=== PATIENT | male | born 2000 | race American Indian/Alaskan Native ===

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

== ENCOUNTER 2022-11-11 15:21 | Inpatient (IN) ==
[2022-11-11] MEDS ORDERED: SODIUM CHLORIDE 0.9% 1000ML 1,000 ML IV ONE (16:13)
[2022-11-11] MEDS ORDERED: LORazepam 2 MG/1 ML VIAL IV STA (16:13)
[2022-11-11] MEDS ORDERED: THIAMINE HCL 200 MG in SODIUM CHLORIDE 0.9% 50 ML IV STA (16:13)
--- NOTE | 2022-11-11 16:23 | Emergency Department Note ---
Impression & Plan Alcohol withdrawal, ETOH abuse, Alcohol related seizure ED Provider Note NAME: ZOIE ROSA AGE: 22 SEX: M : 2000 ARRIVES VIA: Ambulance INFORMANT: Patient, the patient's parents ED PROVIDER(S): Yazan Brown DO CHIEF COMPLAINT: Seizure HPI: The patient is a 22-year-old male who presented to the emergency department for an evaluation of seizure. The patient had a seizure prior to arrival. This was witnessed by his parents. The patient does have a history of alcohol use. He states he has had alcohol withdrawal in the past but never a seizure. He denies having any headache at this time. He denies having any back pain. He d enies having any chest pain or difficulty breathing. He states he last drank alcohol 2 to 3 days ago. He has been compliant with his outpatient medications otherwise. He denies having any fever. ROS: See above HPI for pertinent positives & negatives. A total of 10 systems reviewed and were otherwise negative. PAST MEDICAL HISTORY: See Below PAST SURGICAL HISTORY: See Below FAMILY HISTORY: See Below SOCIAL HISTORY: See Below HOME MEDICATIONS: See Below ALLERGIES: See Below VITALS: See Below PHYSICAL EXAMINATION: GENERAL: The patient is awake and alert. He is somewhat anxious appearing. He is tremulous. EYES: The conjunctivae are clear. The pupils are round and reactive. EARS, NOSE, MOUTH AND THROAT: The nose is without any evidence of any deformity. NECK: The neck is nontender and supple. RESPIRATORY: Normal respiratory effort is noted there is no evidence of wheezing rhonchi or rales CARDIOVASCULAR: Tachycardic and regular heart sounds were noted to auscultation. There is no definite murmur. GASTROINTESTINAL: The abdomen is soft. Abdomen is nontender. MUSCULOSKELETAL/EXTREMITIES: There is no evidence of gross deformity full range of motion is noted in the hips and shoulders. SKIN: There is no obvious evidence of any rash. There are no petechiae, pallor or cyanosis noted. NEUROLOGIC: Patient is awake alert and oriented x3 strength is symmetric patellar reflexes are 2+ bilaterally MEDICAL DECISION MAKING: The patient is a 22-year-old male who presented to the emergency department for an evaluation of seizure. The patient had a seizure while at home. The patient does admit to longstanding alcohol use. The patient states he has not drank in approximately 2 to 3 days. The patient had a very high alcohol withdrawal score. This continued to increase despite treatment with benzodiazepines. The patient was treated with IV fluids as well as thiamine. He was reevaluated multiple times. Given his escalation of his withdrawal symptoms I discussed his condition with the on-call [facility]ist. I do feel the patient could benefit from inpatient treatment. I discussed his condition with his parents as well. Triage Nursing notes reviewed. Vital Signs: reviewed and remarkable for hypertension and tachycardia. Differential diagnosis: Epilepsy, infection, hypoglycemia, electrolyte abnormalities, cardiac sources, intracerebral event, trauma, toxicologic, neurologic, syncope, as well as other pathologies. ER treatment provided: See below Diagnostics interpreted by me: ECG: EKG was obtained in the emergency department. My interpretation is sinus tachycardia at 113 bpm. There is no ectopy. There is no acute ST segment abnormalities noted. No previous tracing was available. Cardiac Monitoring: An order was placed for continuous cardiac monitoring. The monitor shows a rate of 100 bpm with sinus tachycardia. Laboratory studies: As stated above and show below. Imaging studies: See below. Radiographic imaging was reviewed by myself Consultation(s): Dr. Miller was notified about the patient. She was on for the [facility] hospitalist group. She will evaluate the patient in the emergency department. Past Med/Surg History Medical History Hepatic steatosis Surgical History S/P wisdom tooth extraction Family History Father Heart disease Hypertension Diabetes Grandfather Prostate cancer Denies family history of Ovarian cancer Myocardial infarction Breast cancer Colorectal cancer Social History Smoking Status: Never smoker Second Hand Exposure: No; Do You Dip or Chew Tobacco: No; Hx Alcohol Use: Yes Alcohol type: hard liquor Alcohol Intake Frequency: 2-3 x/Week Hx Substance Use: No Preferred Language: Swazi Communication Ability: Effective Visual Impairment: No Limitations Hearing Ability: Normal Cell Installer Required: No marital status: Single Current Living Situation: Parent Current Living Situation Comment: living with parents current occupational status: unemployed Feels Safe at Home: Yes Childhood Exposure to Second-Hand Smoke: No Diet: regular Diet Comment: regular Dental Care, Regularly: Yes Physical Activity Frequency: Does not Exercise Seatbelt Use: always Sunscreen Use: No Assistive Devices: None Allergies Allergies Allergy/AdvReac Type Severity Reaction Status Date / Time No Known Allergies Allergy Verified 11/11/22 17:38 Home Meds Previous Rx's Medication Instructions Recorded dextroamphetamine-amphetamine ER 25 mg PO DAILY #90 caps 01/24/21 25 mg 24hr capsule,extend release (Adderall XR) dextroamphetamine-amphetamine ER 5 5 mg PO QAM #90 caps 01/24/21 mg 24hr capsule,extend release (Adderall XR) sertraline 100 mg tablet 100 mg PO DAILY #30 tabs 10/17/22 Results & Data (ED) Vital Signs Vital Signs - 24 hr 11/11/22 15:31 11/11/22 15:43 11/11/22 18:16 Temperature 36.6 C Temperature Source Oral Pulse Rate 119 H 123 H Pulse Rate [Radial] 100 H Pulse Rate from SpO2 Sensor Pulse Rhythm [Radial] Regular Pulse Strength [Radial] Normal Respiratory Rate 17 23 Respiratory Effort / Characteristics Non-Labored Spontaneous Non-Labored Spontaneous Respiratory Depth Normal Normal Respiratory Pattern Regular Regular Blood Pressure 172/96 H Blood Pressure [Left Arm] 163/105 H Blood Pressure Mean 121 Blood Pressure Mean [Left Arm] 124 Blood Pressure Position [Left Arm] Lying Pulse Oximetry 96 94 Oxygen Delivery Method Room Air Room Air Sepsis Recent Fever Within 48 Hours No Sepsis New/Unexplained Change in Mental Status N/A Sepsis Action Taken by Nursing No Action Required 11/11/22 15:30 11/11/22 15:30 11/11/22 16:00 Temperature Temperature Source Pulse Rate 113 H Pulse Rate [Radial] Pulse Rate from SpO2 Sensor 115 H Pulse Rhythm [Radial] Pulse Strength [Radial] Respiratory Rate 24 Respiratory Effort / Characteristics Respiratory Depth Respiratory Pattern Blood Pressure 172/96 H 148/110 H Blood Pressure [Left Arm] Blood Pressure Mean 121 122 Blood Pressure Mean [Left Arm] Blood Pressure Position [Left Arm] Pulse Oximetry 96 Oxygen Delivery Method Sepsis Recent Fever Within 48 Hours Sepsis New/Unexplained Change in Mental Status Sepsis Action Taken by Nursing 11/11/22 16:00 11/11/22 16:39 11/11/22 16:49 Temperature Temperature Source Pulse Rate 124 H 121 H 123 H Pulse Rate [Radial] Pulse Rate from SpO2 Sensor 124 H 123 H Pulse Rhythm [Radial] Pulse Strength [Radial] Respiratory Rate 29 H 18 24 Respiratory Effort / Characteristics Respiratory Depth Respiratory Pattern Blood Pressure Blood Pressure [Left Arm] Blood Pressure Mean Blood Pressure Mean [Left Arm] Blood Pressure Position [Left Arm] Pulse Oximetry 96 96 Oxygen Delivery Method Sepsis Recent Fever Within 48 Hours Sepsis New/Unexplained Change in Mental Status Sepsis Action Taken by Nursing 11/11/22 16:49 11/11/22 17:00 11/11/22 17:00 Temperature Temperature Source Pulse Rate 116 H Pulse Rate [Radial] Pulse Rate from SpO2 Sensor Pulse Rhythm [Radial] Pulse Strength [Radial] Respiratory Rate 22 Respiratory Effort / Characteristics Respiratory Depth Respiratory Pattern Blood Pressure 196/117 H 180/124 H Blood Pressure [Left Arm] Blood Pressure Mean 143 142 Blood Pressure Mean [Left Arm] Blood Pressure Position [Left Arm] Pulse Oximetry Oxygen Delivery Method Sepsis Recent Fever Within 48 Hours Sepsis New/Unexplained Change in Mental Status Sepsis Action Taken by Nursing 11/11/22 17:30 11/11/22 17:31 11/11/22 17:31 Temperature Temperature Source Pulse Rate 105 H 100 H Pulse Rate [Radial] Pulse Rate from SpO2 Sensor 107 H 102 H Pulse Rhythm [Radial] Pulse Strength [Radial] Respiratory Rate 23 17 Respiratory Effort / Characteristics Respiratory Depth Respiratory Pattern Blood Pressure 154/96 H Blood Pressure [Left Arm] Blood Pressure Mean 115 Blood Pressure Mean [Left Arm] Blood Pressure Position [Left Arm] Pulse Oximetry 97 98 Oxygen Delivery Method Sepsis Recent Fever Within 48 Hours Sepsis New/Unexplained Change in Mental Status Sepsis Action Taken by Nursing 11/11/22 18:00 Temperature Temperature Source Pulse Rate 89 Pulse Rate [Radial] Pulse Rate from SpO2 Sensor 90 Pulse Rhythm [Radial] Pulse Strength [Radial] Respiratory Rate 22 Respiratory Effort / Characteristics Respiratory Depth Respiratory Pattern Blood Pressure Blood Pressure [Left Arm] Blood Pressure Mean Blood Pressure Mean [Left Arm] Blood Pressure Position [Left Arm] Pulse Oximetry 96 Oxygen Delivery Method Sepsis Recent Fever Within 48 Hours Sepsis New/Unexplained Change in Mental Status Sepsis Action Taken by Usp Medications Current Medication List: was personally reviewed by me Laboratory Data Attestation: I reviewed the patient's lab results. 11/11/22 15:41 11/11/22 15:41 Lab Results 11/11/22 11/11/22 11/11/22 Range/Units 15:41 15:41 15:41 WBC 12.14 H (4.8-10.8) K/ul RBC 3.85 L (4.70-6.10) M/uL Hgb 12.7 L (14.0-18.0) g/dl Hct 36.7 L (42.0-52.0) % MCV 95.3 (80.0-100.0) fL MCH 33.0 (25.0-34.0) pg MCHC 34.6 (32.0-36.0) g/dL RDW Std Deviation 49.6 H (36.4-46.3) fL RDW Coeff of Teresa 14.3 (11.5-14.5) % Plt Count 452 H (130-400) K/uL MPV 10.7 (9.4-12.4) fL Immature Gran % (Auto) 1.1 % Neut % (Auto) 77.9 % Lymph % (Auto) 14.0 % [place] % (Auto) 5.2 % Eos % (Auto) 0.8 % Baso % (Auto) 1.0 % Neut # (Auto) 9.46 H (1.40-6.50) K/uL Lymph # (Auto) 1.70 (1.2-3.4) K/uL [place] # (Auto) 0.63 H (0.11-0.59) K/uL Eos # (Auto) 0.10 (0-0.50) K/uL Baso # (Auto) 0.12 (0-0.2) K/uL Immature Gran # (Auto) 0.13 (0.01-0.20) K/uL Sodium 142 (136-145) mmol/L Potassium 3.9 (3.5-5.1) mmol/L Chloride 110 H (98-107) mmol/L Carbon Dioxide 21 (21-32) mmol/L Anion Gap 11 (3-11) BUN 15 (6-23) mg/dl Creatinine 0.86 (0.6-1.4) mg/dl Est Cr Clr Drug Dosing 148.1 ml/min Est GFR ( Amer) 141.7 ml/min Est GFR (Non-Af Amer) 122.2 ml/min BUN/Creatinine Ratio 17.4 (10-20) Glucose 131 H (70-99(Fasting)) mg/dl Calcium 9.0 (8.6-10.3) mg/dl Total Bilirubin 0.3 (0.2-1.0) mg/dl AST 114 H (13-39) U/L ALT 133 H (7-52) U/L Alkaline Phosphatase 86 (34-104) U/L Total Creatine Kinase 87 (30-223) U/L Troponin I High Sens 3.2 (0-20) pg/ml Total Protein 7.1 (6.0-8.3) gm/dl Albumin 4.3 (3.4-5.0) gm/dl Globulin 2.8 (2.5-4.0) gm/dl Albumin/Globulin Ratio 1.5 (0.9-2) Ethyl Alcohol mg/dL < 10.0 (<10.0) mg/dl 11/11/22 Range/Units 16:14 WBC (4.8-10.8) K/ul RBC (4.70-6.10) M/uL Hgb (14.0-18.0) g/dl Hct (42.0-52.0) % MCV (80.0-100.0) fL MCH (25.0-34.0) pg MCHC (32.0-36.0) g/dL RDW Std Deviation (36.4-46.3) fL RDW Coeff of Teresa (11.5-14.5) % Plt Count (130-400) K/uL MPV (9.4-12.4) fL Immature Gran % (Auto) % Neut % (Auto) % Lymph % (Auto) % [place] % (Auto) % Eos % (Auto) % Baso % (Auto) % Neut # (Auto) (1.40-6.50) K/uL Lymph # (Auto) (1.2-3.4) K/uL [place] # (Auto) (0.11-0.59) K/uL Eos # (Auto) (0-0.50) K/uL Baso # (Auto) (0-0.2) K/uL Immature Gran # (Auto) (0.01-0.20) K/uL Sodium (136-145) mmol/L Potassium (3.5-5.1) mmol/L Chloride (98-107) mmol/L Carbon Dioxide (21-32) mmol/L Anion Gap (3-11) BUN (6-23) mg/dl Creatinine (0.6-1.4) mg/dl Est Cr Clr Drug Dosing ml/min Est GFR ( Amer) ml/min Est GFR (Non-Af Amer) ml/min BUN/Creatinine Ratio (10-20) Glucose (70-99(Fasting)) mg/dl Calcium (8.6-10.3) mg/dl Total Bilirubin (0.2-1.0) mg/dl AST (13-39) U/L ALT (7-52) U/L Alkaline Phosphatase (34-104) U/L Total Creatine Kinase Cancelled (30-223) U/L Troponin I High Sens Cancelled (0-20) pg/ml Total Protein (6.0-8.3) gm/dl Albumin (3.4-5.0) gm/dl Globulin (2.5-4.0) gm/dl Albumin/Globulin Ratio (0.9-2) Ethyl Alcohol mg/dL (<10.0) mg/dl Administered Medications Discontinued Medications Sodium Chloride (Nss 1000ml) 1,000 mls @ 999 mls/hr IV .[id number] ONE Stop: 11/11/22 17:13 Last Infusion: 11/11/22 18:15 Dose: 0 mls/hr Documented By: Admin: 11/11/22 16:47 Dose: 999 mls/hr Documented By: MELIZA Thiamine HCl 200 mg/ Sodium (Chloride) 52 mls @ 210 mls/hr IV NOW STA Stop: 11/11/22 16:27 Last Infusion: 11/11/22 16:57 Dose: 0 mls/hr Documented By: Admin: 11/11/22 16:42 Dose: 210 mls/hr Documented By: MELIZA Lorazepam (Lorazepam 2 Mg/1 Ml Vial) 1 mg IV NOW STA Stop: 11/11/22 16:14 Last Admin: 11/11/22 16:42 Dose: 1 mg Documented By: MELIZA Imaging Data Attestation: I personally reviewed and interpreted this imaging study as follows: My Impression: CT of the brain was obtained in the emergency department. My interpretation is no intracranial hemorrhage, no mass effect, final report below. Radiologist's Impression: Cervical Spine CT 11/11/22 16:[address] DOSE: 487.91 mGycm HISTORY: Seizures. Neck pain. TECHNIQUE: Multiaxial CT images of the cervical spine were performed and reformatted in the sagittal and coronal plane without the use of contrast. A dose lowering technique was utilized adhering to the principles of ALARA. COMPARISON: None. FINDINGS: No fractures. No subluxation. Prevertebral soft tissues and the C1-C2 interval are intact. No pneumothorax. IMPRESSION: No fractures within the cervical spine. ACT 112: Negative or not required by law. Electronically signed by: Bruno Joy M.D. 11/11/2022 4:[address] 11/11/22 16:[address] DOSE: 638.56 mGycm HISTORY: Seizures. TECHNIQUE: Multiaxial CT images of the head were performed without the use of intravenous contrast. Automated exposure control was utilized for this study. A dose lowering technique was utilized adhering to the principles of ALARA. Comparison: None. Findings: The paranasal sinuses and mastoid air cells are clear. The calvarium and skull base are intact. The ventricles and sulci are within normal limits. There is no mass, hematoma, midline shift, or acute infarct. Impression: No acute intracranial abnormality. ACT 112: Negative or not required by law. Electronically signed by: Bruno Joy M.D. 11/11/2022 4:44 PM Discharge Plan Visit Data Chief Complaint: Seizure ED Provider: Yazan Brown Discharge Problem: Alcohol withdrawal, ETOH abuse, Alcohol related seizure Patient Disposition: Being Evaluated by Hospitalist Forms Stand Alone Forms: [facility] Prescriptions Prescriptions: No Action dextroamphetamine-amphetamine [Adderall XR] 25 mg capsule,extended release 24hr 25 mg PO DAILY Qty: 90 0RF Rx Instructions: TOTAL DOSE 30 MG--TAKES WITH 5 MG CAP. dextroamphetamine-amphetamine [Adderall XR] 5 mg capsule,extended release 24hr 5 mg PO QAM Qty: 90 0RF Rx Instructions: TOTAL DOSE 30 MG--TAKES WITH 25 MG CAP. sertraline 100 mg tablet 100 mg PO DAILY Qty: 30 2RF Referrals Referrals: Marilu Segundo MD [Primary Care Provider] -
[2022-11-11 16:46] LABS: Basophils # (auto) 0.12 K/uL (0-0.2); Eosinophils % (auto) 0.8 %; Hematocrit (blood only) 36.7 % (42.0-52.0); Hemoglobin 12.7 g/dl (14.0-18.0); Immature Granulocytes # (auto) 0.13 K/uL (0.01-0.20); Immature Granulocytes % (auto) 1.1 %; Mean Corpuscular Hgb Conc 34.6 g/dL (32.0-36.0); Mean Corpuscular Volume 95.3 fL (80.0-100.0); Mean Platelet Volume 10.7 fL (9.4-12.4); Monocytes # (auto) 0.63 K/uL (0.11-0.59); Monocytes % (auto) 5.2 %; Neutrophils # (auto) 9.46 K/uL (1.40-6.50); Neutrophils % (auto) 77.9 %; Platelet Count 452 K/uL (130-400); RDW Coefficient of Variation 14.3 % (11.5-14.5); RDW Standard Deviation 49.6 fL (36.4-46.3); Red Blood Count 3.85 M/uL (4.70-6.10); White Blood Count 12.14 K/ul (4.8-10.8)
--- NOTE | 2022-11-11 16:46 | CT Scan Report ---
HEAD CT NONCONTRAST CT DOSE: 638.56 mGycm HISTORY: Seizures. TECHNIQUE: Multiaxial CT images of the head were performed without the use of intravenous contrast. A utomated exposure control was utilized for this study. A dose lowering technique was utilized adheri ng to the principles of ALARA. Comparison: None. Findings: The paranasal sinuses and mastoid air cells are clear. The calvarium and skull base are int act. The ventricles and sulci are within normal limits. There is no mass, hematoma, midline shift, or acute infarct. Impression: No acute intracranial abnormality. ACT 112: Negative or not required by law. Electronically signed by: Bruno Joy M.D. 11/11/2022 4:44 PM
--- NOTE | 2022-11-11 16:52 | CT Scan Report ---
CERVICAL SPINE CT CT DOSE: 487.91 mGycm HISTORY: Seizures. Neck pain. TECHNIQUE: Multiaxial CT images of the cervical spine were performed and reformatted in the sagittal and coronal plane without the use of contrast. A dose lowering technique was utilized adhering to th e principles of ALARA. COMPARISON: None. FINDINGS: No fractures. No subluxation. Prevertebral soft tissues and the C1-C2 interval are intact. No pneumothorax. IMPRESSION: No fractures within the cervical spine. ACT 112: Negative or not required by law. Electronically signed by: Bruno Joy M.D. 11/11/2022 4:50 PM
[2022-11-11 16:54] LABS: Albumin Level 4.3 gm/dl (3.4-5.0); Bilirubin,Total 0.3 mg/dl (0.2-1.0); Potassium 3.9 mmol/L (3.5-5.1)
[2022-11-11 17:00] LABS: Albumin Globulin Ratio 1.5 (0.9-2); BUN Creatinine Ratio 17.4 (10-20); Creatinine Clr Calc Pharmacy 148.1 ml/min; Est GFR (African American) 141.7 ml/min; Est GFR (Non-African American) 122.2 ml/min; Globulin 2.8 gm/dl (2.5-4.0); Total Protein 7.1 gm/dl (6.0-8.3)
[2022-11-11 17:05] LABS: Troponin I High Sensitivity 3.2 pg/ml (0-20)
[2022-11-11] MEDS ORDERED: Ativan IV Alcohol Withdrawal--Active Protocol IV PRN (17:16)
[2022-11-11] MEDS ORDERED: LORazepam 2 MG/1 ML VIAL IV PRN ×3 (17:16)
--- NOTE | 2022-11-11 20:33 | History & Physical Report ---
Date of Service November 11, 2022 Assessment & Plan (1) Alcohol related seizure: Plan: 22 M with no significant past medical history or prior seizure history brought to the hospital after largely unwitnessed seizure after nearly 48 hours since last drink. Admitted for supervision of suspected alcohol withdrawal seizure. Alcohol-related seizure -No prior history of seizure. Long (5+ years) history of heavy alcohol consumption. Last drink on Friday night (~48 hours). -No intracranial, cervical spinal injury or acute process on imaging. -Negative serum ethyl alcohol, though this could be indicative of faster metabolism of alcohol. -Slight transaminitis seen on initial labs. -S/p IV thiamine 200 mg, IV lorazepam in the ED. * Admit to PCU telemetry. * XR left shoulder, XR left hip results pending. * IVF D5 LR@125 mL/h * Initiate KIKO protocol: p.o. lorazepam ordered to be given per protocol. * IV thiamine 100 mg daily; p.o. folate 1 mg daily * Trend vitals, CMP, CBC. * MRI, EEG if repeat seizure occurs Anxiety -Takes sertraline 100 mg daily at home * Continue home regimen ADHD * Held home Adderall on admission. Code: Full code Dispo: PCU FEN/GI: D5 LR @maintenance rate DVT Prophylaxis: None PT/OT: No Consults: None Case Management: No (2) Alcohol withdrawal: (3) Anxiety: (4) ADHD: History of Present Illness Primary Care Provider: Marilu Segundo MD Quan is a 22-year-old male with no significant past medical history who presented today to the ED after an unwitnessed seizure. Per the patient's mom, who is at bedside, sister was present after seizure started. She described, according to mom, generalized shaking, eyes rolling in the back of his head, and unresponsiveness. Patient also had some postictal confusion. He denies ever having a prior seizure. He does, however, report consuming approximately 5 shots of hard liquor a day at minimum since the age of 16. Patient's last drink was nearly 2 days ago. He denies drug use (marijuana, cocaine, meth, heroin), and further denies taking any new vitamins or supplements. In the ED, labs were notable for slight leukocytosis of 12.14. AST 114, ALT 133. Alk phos was normal at 86. Toxicology screen was negative for ethyl alcohol. Head CT, and cervical spine CT were both negative for acute fracture or dislocation/subluxation. He received a dose of IV thiamine 200 mg in the ED, and 1 dose of IV lorazepam. Hospitalist was then consulted for admission. On admission, he reports some mild epigastric pain. Otherwise, he denies headache, dizziness, vision changes, shortness of breath, chest pain, palpitations, diaphoresis, abdominal pain, nausea, or vomiting. He is concerned about having to stay here for an extended period of time due to his pending assignments at school. Allergies Allergy/AdvReac Type Severity Reaction Status Date / Time No Known Allergies Allergy Verified 11/11/22 17:38 Home Medications Medication Instructions Recorded Confirmed Type dextroamphetamine-amphetamine ER 25 mg PO DAILY #90 caps 01/24/21 11/11/22 Rx 25 mg 24hr capsule,extend release (Adderall XR) dextroamphetamine-amphetamine ER 5 5 mg PO QAM #90 caps 01/24/21 11/11/22 Rx mg 24hr capsule,extend release (Adderall XR) sertraline 100 mg tablet 100 mg PO DAILY #30 tabs 10/17/22 11/11/22 Rx Past Med/Surg History Medical History Hepatic steatosis Surgical History S/P wisdom tooth extraction Family History Father Heart disease Hypertension Diabetes Grandfather Prostate cancer Denies family history of Ovarian cancer Myocardial infarction Breast cancer Colorectal cancer Social History Smoking Status: Never smoker Second Hand Exposure: No; Do You Dip or Chew Tobacco: No; Hx Alcohol Use: Yes Alcohol type: hard liquor Alcohol Intake Frequency: 2-3 x/Week Hx Substance Use: No Preferred Language: [place]se Communication Ability: Effective Visual Impairment: No Limitations Hearing Ability: Normal Book Editor Required: No marital status: Single Current Living Situation: Parent Current Living Situation Comment: living with parents current occupational status: unemployed Feels Safe at Home: Yes Childhood Exposure to Second-Hand Smoke: No Diet: regular Diet Comment: regular Dental Care, Regularly: Yes Physical Activity Frequency: Does not Exercise Seatbelt Use: always Sunscreen Use: No Assistive Devices: None Review of Systems Review of Systems: All systems reviewed & are unremarkable except as noted in HPI & below Physical Exam Physical Exam: General: No acute distress HEENT: PERRLA. Normal conjunctiva, anicteric sclera. Oropharynx normal. Respiratory: Normal respiratory effort, CTABL. Cardiovascular: RRR without murmurs, gallops, or rubs. No edema. Distal capillary refill <2 seconds. GI: Soft abdomen with normal bowel sounds heard on auscultation. Nontender x4 quadrants MSK: Point tenderness to palpation of left shoulder at the joint space and along clavicle; point tenderness at proximal anterior left hip. Neuro: Alert and oriented x3. CN II-XII intact bilaterally. No sensory deficits elicited on exam. Results & Data Results & Data Vital Signs (Past 12 Hours) Vital Signs Temp Pulse Pulse Resp BP BP Pulse Ox 11/11/22 19:15 96 H 11/11/22 20:08 96 H 18 157/116 H 98 11/11/22 18:00 89 22 96 11/11/22 17:31 100 H 17 98 11/11/22 17:31 154/96 H 11/11/22 17:30 105 H 23 97 11/11/22 17:00 116 H 22 11/11/22 17:00 180/124 H 11/11/22 16:49 196/117 H 11/11/22 16:49 123 H 24 96 11/11/22 16:39 121 H 18 11/11/22 16:00 124 H 29 H 96 11/11/22 16:00 148/110 H 11/11/22 15:30 113 H 24 96 11/11/22 15:30 172/96 H 11/11/22 18:16 100 H 23 163/105 H 94 11/11/22 15:43 36.6 C 123 H 17 172/96 H 96 11/11/22 15:31 119 H O2 Del Method 11/11/22 19:15 11/11/22 20:08 Room Air 11/11/22 18:00 11/11/22 17:31 11/11/22 17:31 11/11/22 17:30 11/11/22 17:00 11/11/22 17:00 11/11/22 16:49 11/11/22 16:49 11/11/22 16:39 11/11/22 16:00 11/11/22 16:00 11/11/22 15:30 11/11/22 15:30 11/11/22 18:16 Room Air 11/11/22 15:43 Room Air 11/11/22 15:31 Laboratory Results Laboratory Results WBC 12.14 K/ul (4.8-10.8) H 11/11/22 15:41 RBC 3.85 M/uL (4.70-6.10) L 11/11/22 15:41 Hgb 12.7 g/dl (14.0-18.0) L 11/11/22 15:41 Hct 36.7 % (42.0-52.0) L 11/11/22 15:41 MCV 95.3 fL (80.0-100.0) 11/11/22 15:41 MCH 33.0 pg (25.0-34.0) 11/11/22 15:41 MCHC 34.6 g/dL (32.0-36.0) 11/11/22 15:41 RDW Std Deviation 49.6 fL (36.4-46.3) H 11/11/22 15:41 RDW Coeff of Teresa 14.3 % (11.5-14.5) 11/11/22 15:41 Plt Count 452 K/uL (130-400) H 11/11/22 15:41 MPV 10.7 fL (9.4-12.4) 11/11/22 15:41 Immature Gran % (Auto) 1.1 % 11/11/22 15:41 Neut % (Auto) 77.9 % 11/11/22 15:41 Lymph % (Auto) 14.0 % 11/11/22 15:41 [place] % (Auto) 5.2 % 11/11/22 15:41 Eos % (Auto) 0.8 % 11/11/22 15:41 Baso % (Auto) 1.0 % 11/11/22 15:41 Neut # (Auto) 9.46 K/uL (1.40-6.50) H 11/11/22 15:41 Lymph # (Auto) 1.70 K/uL (1.2-3.4) 11/11/22 15:41 [place] # (Auto) 0.63 K/uL (0.11-0.59) H 11/11/22 15:41 Eos # (Auto) 0.10 K/uL (0-0.50) 11/11/22 15:41 Baso # (Auto) 0.12 K/uL (0-0.2) 11/11/22 15:41 Immature Gran # (Auto) 0.13 K/uL (0.01-0.20) 11/11/22 15:41 Sodium 142 mmol/L (136-145) 11/11/22 15:41 Potassium 3.9 mmol/L (3.5-5.1) 11/11/22 15:41 Chloride 110 mmol/L (98-107) H 11/11/22 15:41 Carbon Dioxide 21 mmol/L (21-32) 11/11/22 15:41 Anion Gap 11 (3-11) 11/11/22 15:41 BUN 15 mg/dl (6-23) 11/11/22 15:41 Creatinine 0.86 mg/dl (0.6-1.4) 11/11/22 15:41 Est Cr Clr Drug Dosing 148.1 ml/min 11/11/22 15:41 Est GFR ( Amer) 141.7 ml/min 11/11/22 15:41 Est GFR (Non-Af Amer) 122.2 ml/min 11/11/22 15:41 BUN/Creatinine Ratio 17.4 (10-20) 11/11/22 15:41 Glucose 131 mg/dl (70-99(Fasting)) H 11/11/22 15:41 Calcium 9.0 mg/dl (8.6-10.3) 11/11/22 15:41 Total Bilirubin 0.3 mg/dl (0.2-1.0) 11/11/22 15:41 AST 114 U/L (13-39) H 11/11/22 15:41 ALT 133 U/L (7-52) H 11/11/22 15:41 Alkaline Phosphatase 86 U/L (34-104) 11/11/22 15:41 Total Creatine Kinase Cancelled 11/11/22 16:14 Troponin I High Sens Cancelled 11/11/22 16:14 Total Protein 7.1 gm/dl (6.0-8.3) 11/11/22 15:41 Albumin 4.3 gm/dl (3.4-5.0) 11/11/22 15:41 Globulin 2.8 gm/dl (2.5-4.0) 11/11/22 15:41 Albumin/Globulin Ratio 1.5 (0.9-2) 11/11/22 15:41 Ethyl Alcohol mg/dL < 10.0 mg/dl (<10.0) 11/11/22 15:41 SARS-CoV-2, RNA, NAAT NEGATIVE (NEGATIVE) 11/11/22 19:[address] 11/11/22 16:[address] DOSE: 487.91 mGycm HISTORY: Seizures. Neck pain. TECHNIQUE: Multiaxial CT images of the cervical spine were performed and reformatted in the sagittal and coronal plane without the use of contrast. A dose lowering technique was utilized adhering to the principles of ALARA. COMPARISON: None. FINDINGS: No fractures. No subluxation. Prevertebral soft tissues and the C1-C2 interval are intact. No pneumothorax. IMPRESSION: No fractures within the cervical spine. ACT 112: Negative or not required by law. Electronically signed by: Bruno Joy M.D. 11/11/2022 4:[address] 11/11/22 16:[address] DOSE: 638.56 mGycm HISTORY: Seizures. TECHNIQUE: Multiaxial CT images of the head were performed without the use of intravenous contrast. Automated exposure control was utilized for this study. A dose lowering technique was utilized adhering to the principles of ALARA. Comparison: None. Findings: The paranasal sinuses and mastoid air cells are clear. The calvarium and skull base are intact. The ventricles and sulci are within normal limits. There is no mass, hematoma, midline shift, or acute infarct. Impression: No acute intracranial abnormality. ACT 112: Negative or not required by law. Electronically signed by: Bruno Joy M.D. 11/11/2022 4:44 PM Supervising Physician Co-Signing Physician Notes Patient seen and examined, chart reviewed, case discussed with Dr. Lindo and I agree with the assessment and plan as above. In brief, patient is a 22yo male with history of heavy EtOH use, ADHD and Depression presenting with seizure. Patient reports he was watching TV then had some alteration of the audio from the TV and his "brain felt fuzzy". He then proceeded to have a seizure. Was found by family. He reports drinking heavily in the past but now "tries to avoid alcohol". Difficult to quantify how much EtOH he has been drinking lately. Last drink 2- 3 days ago. He denies fever, head trauma, sleep deprivation, new medication or missing medications. On exam he is resting in bed. No tremors. Mother is at bedside as well Skin - warm, dry, intact, no rashes/lesions HEENT - NC/AT, PERRL, MMM, Neck supple Heart - +S1/S2, regular, no m/r/g Lungs - CTA Abd - soft, NT/ND Ext - warm, well perfused Neuro - no focal deficits, no tremors Labs and images reviewed. Significant for mildly elevated WBC=12.14, normochromic/normocytic anemia with Hgb=12.7, Hct=36.7, Qkg=875 YOA=704, ZDR=739 CTHead and C-spine unremarkable Assessment/Plan 22yo male presenting with seizure. He has history of frequent EtOH use with withdrawal symptoms - no prior seizure -Seizure precautions -AWSS -Will check UTox -Consider EEG, MRI and Neuro assessment if patient seizes again Resident Activity Tracking Resident Involvement: Resident Care Provided Care Provided: Adult Hospital Medicine (2) Alcohol withdrawal Complication of substance-induced condition: with unspecified complication Qualified Code(s): F10.939 - Alcohol use, unspecified with withdrawal, unspecified
[2022-11-11] MEDS ORDERED: LORazepam 1 MG TAB PO PRN ×3 (23:11)
[2022-11-11] MEDS ORDERED: Ativan PO Alcohol Withdrawal--Active Protocol PO PRN (23:11)
--- NOTE | 2022-11-11 23:20 | Billing Data ---
Date of Service November 11, 2022 Coding Level of Care Code 21955 INT INP/OBS CARE
[2022-11-11] MEDS: D5W AND LACTATED RINGERS 1,000 ML IV SCH (23:39)
[2022-11-12 06:25] LABS: Basophils # (auto) 0.09 K/uL (0-0.2); Basophils % (auto) 0.8 %; Eosinophils % (auto) 1.7 %; Hematocrit (blood only) 35.3 % (42.0-52.0); Hemoglobin 12.1 g/dl (14.0-18.0); Immature Granulocytes # (auto) 0.09 K/uL (0.01-0.20); Immature Granulocytes % (auto) 0.8 %; Lymphocytes # (auto) 1.79 K/uL (1.2-3.4); Lymphocytes % (auto) 15.4 %; Mean Corpuscular Hemoglobin 32.5 pg (25.0-34.0); Mean Corpuscular Hgb Conc 34.3 g/dL (32.0-36.0); Mean Corpuscular Volume 94.9 fL (80.0-100.0); Mean Platelet Volume 10.4 fL (9.4-12.4); Monocytes # (auto) 0.94 K/uL (0.11-0.59); Monocytes % (auto) 8.1 %; Neutrophils # (auto) 8.49 K/uL (1.40-6.50); Neutrophils % (auto) 73.2 %; Platelet Count 400 K/uL (130-400); RDW Standard Deviation 48.6 fL (36.4-46.3); Red Blood Count 3.72 M/uL (4.70-6.10)
[2022-11-12 06:33] LABS: Alanine Aminotransferase 108 U/L (7-52); Albumin Globulin Ratio 1.5 (0.9-2); Alkaline Phosphatase 71 U/L (34-104); Anion Gap 9 (3-11); Aspartate Aminotransferase 76 U/L (13-39); BUN Creatinine Ratio 11.8 (10-20); Bilirubin,Total 0.6 mg/dl (0.2-1.0); Blood Urea Nitrogen 8 mg/dl (6-23); Calcium 8.5 mg/dl (8.6-10.3); Carbon Dioxide 21 mmol/L (21-32); Chloride 110 mmol/L (98-107); Creatinine Clr Calc Pharmacy 187.3 ml/min; Est GFR (African American) > 150.0 ml/min; Est GFR (Non-African American) 134.6 ml/min; Globulin 2.6 gm/dl (2.5-4.0); Glucose 103 mg/dl (70-99(Fasting)); Magnesium 1.9 mg/dl (1.7-2.4); Phosphorus 3.5 mg/dl (2.5-4.9); Potassium 3.2 mmol/L (3.5-5.1); Sodium 140 mmol/L (136-145); Total Protein 6.6 gm/dl (6.0-8.3)
[2022-11-12] MEDS ORDERED: POTASSIUM CHLORIDE CRTAB 20 MEQ TABCR PO STA (06:34)
[2022-11-12] MEDS ORDERED: POTASSIUM CHLORIDE / WTR 10 MEQ/100 ML PLCT IV SCH (07:15)
--- NOTE | 2022-11-12 08:04 | XRay Report ---
XR hip LT 2V w pelvis CLINICAL HISTORY: Fall. Left hip pain. COMPARISON STUDY: None. FINDINGS: No fracture or dislocation within the pelvis or hips. The sacrum is intact. Soft tissues ar e unremarkable. No radiopaque foreign bodies. IMPRESSION: No fractures within the pelvis or hips. ACT 112: Negative or not required by law. Electronically signed by: Bruno Joy M.D. 11/12/2022 7:25 AM
--- NOTE | 2022-11-12 08:04 | XRay Report ---
LEFT SHOULDER 3 VIEWS HISTORY: Left shoulder pain. fall 2/2 seizure COMPARISON: None. FINDINGS: There is no fracture or dislocation. Soft tissues are unremarkable. No radiopaque foreign b odies. The left clavicle is intact. IMPRESSION: No fractures. ACT 112: Negative or not required by law. Electronically signed by: Bruno Joy M.D. 11/12/2022 7:26 AM
--- NOTE | 2022-11-12 08:07 | Medical Student H&P ---
Date of Service November 12, 2022 Assessment & Plan (1) Alcohol related seizure: Plan: 22 M with no significant past medical history or prior seizure history brought to the hospital after largely unwitnessed seizure after nearly 48 hours since last drink. Admitted for supervision of suspected alcohol withdrawal seizure. Alcohol-related seizure -No prior history of seizure. Long (5+ years) history of heavy alcohol consumption. Last drink on Friday night (~48 hours). -No intracranial, cervical spinal injury or acute process on imaging. -Negative serum ethyl alcohol, though this could be indicative of faster metabolism of alcohol. -Slight transaminitis seen on initial labs. -S/p IV thiamine 200 mg, IV lorazepam in the ED. * Admit to PCU telemetry. * XR left shoulder, XR left hip results pending. * IVF D5 LR@125 mL/h * Initiate KIKO protocol: p.o. lorazepam ordered to be given per protocol. * IV thiamine 100 mg daily; p.o. folate 1 mg daily * Trend vitals, CMP, CBC. * MRI, EEG if repeat seizure occurs Assessment/Plan 22yo male presenting with seizure. He has history of frequent EtOH use with withdrawal symptoms - no prior seizure -Seizure precautions -AWSS -Will check UTox -Consider EEG, MRI and Neuro assessment if patient seizes again Anxiety -Takes sertraline 100 mg daily at home * Continue home regimen ADHD * Held home Adderall on admission. Code: Full code Dispo: PCU FEN/GI: D5 LR @maintenance rate DVT Prophylaxis: None PT/OT: No Consults: None Case Management: No (2) Alcohol withdrawal: Complication of substance-induced condition: with unspecified complication Qualified Code(s): F10.939 - Alcohol use, unspecified with withdrawal, unspecified (3) Anxiety: (4) ADHD: Admission and Anticipated Discharge Date Admission Date: November 11, 2022 History of Present Illness Primary Care Provider: Marilu Segundo MD Quan is a 22 year old male with a PMHx significant for alcohol use disorder and ADHD who was admitted on 11/11/22 for a seizure after 48 hours of sustaining from alcohol. Per the patient's mom, who is at bedside, sister was present after seizure started. She described, according to mom, generalized shaking, eyes rolling in the back of his head, and unresponsiveness. Patient reports he was watching TV then had some alteration of the audio from the TV and his "brain felt fuzzy".Patient also had some postictal confusion. He denies ever having a prior seizure. He does, however, report consuming approximately 5 shots of hard liquor a day at minimum since the age of 16. Patient's last drink was nearly 2 days ago. He denies drug use (marijuana, cocaine, meth, heroin), and further denies taking any new vitamins or supplements. He denies fever, head trauma, sleep deprivation, new medication or missing medications. In the ED, labs were notable for slight leukocytosis of 12.14. AST 114, ALT 133. Alk phos was normal at 86. Toxicology screen was negative for ethyl alcohol. Head CT, and cervical spine CT were both negative for acute fracture or dislocation/subluxation. He received a dose of IV thiamine 200 mg in the ED, and 1 dose of IV lorazepam. On admission, he reports some mild epigastric pain. Otherwise, he denies headache, dizziness, vision changes, shortness of breath, chest pain, palpitations, diaphoresis, abdominal pain, nausea, or vomiting. He is concerned about having to stay here for an extended period of time due to his pending assignments at school. This morning, he is On exam he is resting in bed. No tremors. Mother is at bedside as well Labs and images reviewed. Significant for mildly elevated WBC=12.14, normochromic/normocytic anemia with Hgb=12.7, Hct=36.7, Owo=135 BPQ=048, PXS=949 CTHead and C-spine unremarkable Allergies Allergy/AdvReac Type Severity Reaction Status Date / Time No Known Allergies Allergy Verified 11/11/22 17:38 Home Medications Medication Instructions Recorded Confirmed Type dextroamphetamine-amphetamine ER 25 mg PO DAILY #90 caps 01/24/21 11/11/22 Rx 25 mg 24hr capsule,extend release (Adderall XR) dextroamphetamine-amphetamine ER 5 5 mg PO QAM #90 caps 01/24/21 11/11/22 Rx mg 24hr capsule,extend release (Adderall XR) sertraline 100 mg tablet 100 mg PO DAILY #30 tabs 10/17/22 11/11/22 Rx Past Med/Surg History Medical History Hepatic steatosis Surgical History S/P wisdom tooth extraction Family History Father Heart disease Hypertension Diabetes Grandfather Prostate cancer Denies family history of Ovarian cancer Myocardial infarction Breast cancer Colorectal cancer Social History Smoking Status: Unknown if ever smoked Second Hand Exposure: No; Do You Dip or Chew Tobacco: No; Hx Alcohol Use: Yes Alcohol type: hard liquor Alcohol Intake Frequency: 2-3 x/Week Hx Substance Use: No Preferred Language: Sami Communication Ability: Effective Visual Impairment: No Limitations Hearing Ability: Normal Locator Required: No Beliefs That Will Affect Care: None marital status: Single Current Living Situation: Family Current Living Situation Comment: living with parents current occupational status: unemployed Feels Safe at Home: Yes Childhood Exposure to Second-Hand Smoke: No Diet: regular Diet Comment: regular Dental Care, Regularly: Yes Physical Activity Frequency: Does not Exercise Seatbelt Use: always Sunscreen Use: No Assistive Devices: None Physical Exam Physical Exam: Constitutional: [well-appearing, no acute distress] HEENT: [NCAT, no conjunctival injection] CV: [regular rhythm, no murmur appreciated, extremitieswell-perfused, no LE edema] Resp: [CTABL, no wheezes/rales/rhonchi appreciated,no increased work of breathing] GI: [soft, nondistended, nontender, BS normoactive] MSK: [no gross deformities appreciated] Skin: [warm, dry, no rash appreciated] Neuro: [alert, oriented, no focal neurologic deficitappreciated Results & Data Vital Signs (Past 12 Hours) Vital Signs Temp Pulse Pulse Resp BP BP Pulse Ox 11/12/22 06:59 36.6 C 74 20 150/98 H 97 11/12/22 03:09 36.6 C 97 H 20 141/95 H 98 11/11/22 23:59 76 11/12/22 00:52 36.7 C 73 18 164/113 H 98 11/12/22 00:24 36.8 C 74 18 155/98 H 97 11/11/22 21:40 79 23 11/11/22 21:30 116 H 18 11/11/22 21:20 88 22 11/11/22 21:10 86 22 11/11/22 21:06 184/105 H 11/11/22 21:06 112 H 16 11/11/22 21:00 102 H 23 11/11/22 20:50 94 H 23 11/11/22 20:40 95 H 18 11/11/22 20:31 100 H 20 11/11/22 20:30 87 24 11/11/22 20:20 81 16 11/11/22 20:10 102 H 25 H 11/11/22 20:08 96 H 18 157/116 H 98 O2 Del Method 11/12/22 06:59 Room Air 11/12/22 03:09 Room Air 11/11/22 23:59 11/12/22 00:52 Room Air 11/12/22 00:24 Room Air 11/11/22 21:40 11/11/22 21:30 11/11/22 21:20 11/11/22 21:10 11/11/22 21:06 11/11/22 21:06 11/11/22 21:00 11/11/22 20:50 11/11/22 20:40 11/11/22 20:31 11/11/22 20:30 11/11/22 20:20 11/11/22 20:10 11/11/22 20:08 Room Air Laboratory Results Laboratory Results WBC 11.60 K/ul (4.8-10.8) H 11/12/22 05:32 RBC 3.72 M/uL (4.70-6.10) L 11/12/22 05:32 Hgb 12.1 g/dl (14.0-18.0) L 11/12/22 05:32 Hct 35.3 % (42.0-52.0) L 11/12/22 05:32 MCV 94.9 fL (80.0-100.0) 11/12/22 05:32 MCH 32.5 pg (25.0-34.0) 11/12/22 05:32 MCHC 34.3 g/dL (32.0-36.0) 11/12/22 05:32 RDW Std Deviation 48.6 fL (36.4-46.3) H 11/12/22 05:32 RDW Coeff of Teresa 14.0 % (11.5-14.5) 11/12/22 05:32 Plt Count 400 K/uL (130-400) 11/12/22 05:32 MPV 10.4 fL (9.4-12.4) 11/12/22 05:32 Immature Gran % (Auto) 0.8 % 11/12/22 05:32 Neut % (Auto) 73.2 % 11/12/22 05:32 Lymph % (Auto) 15.4 % 11/12/22 05:32 Major % (Auto) 8.1 % 11/12/22 05:32 Eos % (Auto) 1.7 % 11/12/22 05:32 Baso % (Auto) 0.8 % 11/12/22 05:32 Neut # (Auto) 8.49 K/uL (1.40-6.50) H 11/12/22 05:32 Lymph # (Auto) 1.79 K/uL (1.2-3.4) 11/12/22 05:32 Major # (Auto) 0.94 K/uL (0.11-0.59) H 11/12/22 05:32 Eos # (Auto) 0.20 K/uL (0-0.50) 11/12/22 05:32 Baso # (Auto) 0.09 K/uL (0-0.2) 11/12/22 05:32 Immature Gran # (Auto) 0.09 K/uL (0.01-0.20) 11/12/22 05:32 Sodium 140 mmol/L (136-145) 11/12/22 05:32 Potassium 3.2 mmol/L (3.5-5.1) L 11/12/22 05:32 Chloride 110 mmol/L (98-107) H 11/12/22 05:32 Carbon Dioxide 21 mmol/L (21-32) 11/12/22 05:32 Anion Gap 9 (3-11) 11/12/22 05:32 BUN 8 mg/dl (6-23) 11/12/22 05:32 Creatinine 0.68 mg/dl (0.6-1.4) 11/12/22 05:32 Est Cr Clr Drug Dosing 187.3 ml/min 11/12/22 05:32 Est GFR ( Amer) > 150.0 ml/min 11/12/22 05:32 Est GFR (Non-Af Amer) 134.6 ml/min 11/12/22 05:32 BUN/Creatinine Ratio 11.8 (10-20) 11/12/22 05:32 Glucose 103 mg/dl (70-99(Fasting)) H 11/12/22 05:32 Calcium 8.5 mg/dl (8.6-10.3) L 11/12/22 05:32 Phosphorus 3.5 mg/dl (2.5-4.9) 11/12/22 05:32 Magnesium 1.9 mg/dl (1.7-2.4) 11/12/22 05:32 Total Bilirubin 0.6 mg/dl (0.2-1.0) 11/12/22 05:32 AST 76 U/L (13-39) H 11/12/22 05:32 ALT 108 U/L (7-52) H 11/12/22 05:32 Alkaline Phosphatase 71 U/L (34-104) 11/12/22 05:32 Total Creatine Kinase Cancelled 11/11/22 16:14 Troponin I High Sens Cancelled 11/11/22 16:14 Total Protein 6.6 gm/dl (6.0-8.3) 11/12/22 05:32 Albumin 4.0 gm/dl (3.4-5.0) 11/12/22 05:32 Globulin 2.6 gm/dl (2.5-4.0) 11/12/22 05:32 Albumin/Globulin Ratio 1.5 (0.9-2) 11/12/22 05:32 Ethyl Alcohol mg/dL < 10.0 mg/dl (<10.0) 11/11/22 15:41 SARS-CoV-2, RNA, NAAT NEGATIVE (NEGATIVE) 11/11/22 19:[address] 11/11/22 16:[address] DOSE: 487.91 mGycm HISTORY: Seizures. Neck pain. TECHNIQUE: Multiaxial CT images of the cervical spine were performed and reformatted in the sagittal and coronal plane without the use of contrast. A dose lowering technique was utilized adhering to the principles of ALARA. COMPARISON: None. FINDINGS: No fractures. No subluxation. Prevertebral soft tissues and the C1-C2 interval are intact. No pneumothorax. IMPRESSION: No fractures within the cervical spine. ACT 112: Negative or not required by law. Electronically signed by: Bruno Joy M.D. 11/11/2022 4:[address] 11/11/22 16:[address] DOSE: 638.56 mGycm HISTORY: Seizures. TECHNIQUE: Multiaxial CT images of the head were performed without the use of intravenous contrast. Automated exposure control was utilized for this study. A dose lowering technique was utilized adhering to the principles of ALARA. Comparison: None. Findings: The paranasal sinuses and mastoid air cells are clear. The calvarium and skull base are intact. The ventricles and sulci are within normal limits. There is no mass, hematoma, midline shift, or acute infarct. Impression: No acute intracranial abnormality. ACT 112: Negative or not required by law. Electronically signed by: Bruno Joy M.D. 11/11/2022 4:44 PM
[2022-11-12] MEDS: D5W AND LACTATED RINGERS 1,000 ML IV SCH (08:55)
[2022-11-12] MEDS ORDERED: THIAMINE HCL 100 MG in SYRINGE 9 ML IV SCH (09:00)
[2022-11-12] MEDS ORDERED: FOLIC ACID 1 MG TAB PO SCH (09:00)
[2022-11-12] MEDS ORDERED: SERTRALINE HCL 100 MG TABLET PO SCH (09:00)
--- NOTE | 2022-11-12 09:49 | Medical Student Progress Note ---
Date of Service November 12, 2022 Assessment & Plan Plan 22 M with PMHx significant for ADHD brought to the hospital on 11/11/22 for seizure after 48 hours of sustaining from alcohol. Admitted for supervision of suspected alcohol withdrawal seizure. Alcohol-related seizure -No prior history of seizure.6 year history of heavy alcohol consumption. Last drink was on Friday night11/09/22 (~48 hours before seizure onset). -No intracranial, cervical spinal injury, or acute process on imaging. -ED Course:Negative serum ethyl alcohol.. Thiamine 200 mg IV, lorazepam IV. -P.O. lorazepam ordered to be given per protocol KIKO protocol. IV thiamine 100 mg daily; p.o. folate 1 mg daily Trend vitals, CMP, CBC. Consider EEG, MRI, and Neuro assessment if patient seizes again -Seizure precautions Alcohol Use Disorder -Had a period of heavy drinking that started 4 weeks ago. He was drinking one fifth of liquor every 1-2 days. During that time, he attended an AA meeting, and found some of the lessons helpful in terms of limiting alcohol intake. He decreased his frequency and total intake 2 weeks ago, -He would be willing to consider outpatient treatment, but is opposed to inpatient treatment. -He would be willing to consider starting acamprosate or naltrexone. -Consulted with case management. They will discuss outpatient treatments with Quan. -Will be following up with Dr. Segundo on 11/14/22. Hypokalemia, Mild -Potassium of 3.2 (down from 3.9 on 11/11/22), most likely due to IV fluid extracellular potassium shift. -Fluids discontinued. Potassium replacement restarted. Elevated Transaminitis, Mild -AST (76), ALT (108). Does not follow typical 2:1 AST/ALT ratio seen in alcohol use. -Liver US 11/12/22 showed Hepatic steatosis. -Per father, patient had a history of fatty deposits in his liver that was discovered in 7th grade. -Follow up with PCP as above. Normocytic (MVC = 94.9) Anemia, Mild -Iron (64), TIBC (331), unsaturated IBC (267), B12 (263) WNL. Ferritin elevated at 541.2, consistent with alcohol use disorder/liver disease. -Treatment as above. Leukocytosis, Mild, Resolving -Likely due to the effect of circulating epinephrine and norepinephrine following the seizure. Anxiety, Chronic -Takes sertraline 100 mg daily at home Continue home regimen ADHD, Chronic Held home Adderall on admission. Code: Full code Dispo: PCU FEN/GI: Fluids discontinued. Advanced diet. DVT Prophylaxis: None PT/OT: No Consults: None Case Management: Yes Admission and Anticipated Discharge Date Admission Date: November 11, 2022 Treva Glass is a 22 year old male with a PMHx significant for alcohol use disorder and ADHD who was admitted on 11/11/22 for a seizure after 48 hours of sustaining from alcohol. Per the patient's mom, who is at bedside, sister was present after seizure started. She described, according to mom, generalized shaking, eyes rolling in the back of his head, and unresponsiveness. Patient reports he was watching TV then had some alteration of the audio from the TV and his "brain felt fuzzy". Patient also had some postictal confusion. He denies ever having a prior seizure. He does, however, report consuming approximately 5 shots of hard liquor a day at minimum since the age of 16. Patient's last drink was nearly 2 days ago. He denies drug use (marijuana, cocaine, meth, heroin), and further denies taking any new vitamins or supplements. He denies fever, head trauma, sleep deprivation, new medication or missing medications. In the ED, labs were notable for slight leukocytosis of 12.14. AST 114, ALT 133. Alk phos was normal at 86. Toxicology screen was negative for ethyl alcohol. Head CT, and cervical spine CT were both negative for acute fracture or dislocation/subluxation. He received a dose of IV thiamine 200 mg in the ED, and 1 dose of IV lorazepam. On admission, he reports some mild epigastric pain. Otherwise, he denies headache, dizziness, vision changes, shortness of breath, chest pain, palpitations, diaphoresis, abdominal pain, nausea, or vomiting. He is concerned about having to stay here for an extended period of time due to his pending assignments at school. This morning, he is feeling well. He is still having some mild epigastric pain, but relates this more to muscle soreness than abdominal pain. Physical Exam Physical Exam: Constitutional: Well-appearing, no acute distress HEENT: [NCAT, no conjunctival injection] CV: [regular rhythm, no murmur appreciated, extremities, well-perfused, no LE edema Resp: CTABL, no wheezes/rales/rhonchi appreciated,no increased work of breathing. GI: [soft, nondistended, nontender, BS normoactive] MSK: [no gross deformities appreciated] Skin: [warm, dry, no rash appreciated] Neuro: [alert, oriented, no focal neurologic deficitappreciated Results & Data Vital Signs (Past 12 Hours) Vital Signs Temp Pulse Pulse Resp BP Pulse Ox O2 Del Method 11/12/22 08:49 82 11/12/22 06:59 36.6 C 74 20 150/98 H 97 Room Air 11/12/22 03:09 36.6 C 97 H 20 141/95 H 98 Room Air 11/11/22 23:59 76 11/12/22 00:52 36.7 C 73 18 164/113 H 98 Room Air 11/12/22 00:24 36.8 C 74 18 155/98 H 97 Room Air Laboratory Results Abnormal Labs 11/11/22 11/11/22 11/12/22 15:41 15:41 05:32 WBC 12.14 H 11.60 H RBC 3.85 L 3.72 L Hgb 12.7 L 12.1 L Hct 36.7 L 35.3 L RDW Std Deviation 49.6 H 48.6 H Plt Count 452 H Neut # (Auto) 9.46 H 8.49 H [place] # (Auto) 0.63 H 0.94 H Potassium Chloride 110 H Glucose 131 H Calcium AST 114 H ALT 133 H 11/12/22 05:32 WBC RBC Hgb Hct RDW Std Deviation Plt Count Neut # (Auto) [place] # (Auto) Potassium 3.2 L Chloride 110 H Glucose 103 H Calcium 8.5 L AST 76 H ALT 108 H Diagnostic Findings ABDOMINAL ULTRASOUND, RIGHT UPPER QUADRANT HISTORY: Acute right upper quadrant abdominal pain hx of alcohol abuse, withdrawal seizure. COMPARISON: Abdominal ultrasound 04/30/2016 FINDINGS: Pancreas: The pancreas is mostly secured by bowel gas. Liver: Measures 16.5 cm in length and demonstrates areas of increased echogenicity. Well-defined areas of decreased echogenicity measuring up to 1.8 cm suggestive of probable fatty sparing. Gallbladder: No gallbladder wall thickening. No gallstones. CBD: 0.3 cm. Right kidney: No hydronephrosis. IMPRESSION: 1. Hepatic steatosis. 2. Unremarkable sonographic appearance of the gallbladder. 3. No biliary ductal dilation. ACT 112: Negative or not required by law. Electronically signed by: Chet Medrano M.D. 11/12/2022 1:48 PM Dictated:11/12/22 1347 Transcribed: 11/12/22 134 LEFT SHOULDER 3 VIEWS HISTORY: Left shoulder pain. fall 2/2 seizure COMPARISON: None. FINDINGS: There is no fracture or dislocation. Soft tissues are unremarkable. No radiopaque foreign bodies. The left clavicle is intact. IMPRESSION: No fractures. ACT 112: Negative or not required by law. Electronically signed by: Bruno Joy M.D. 11/12/2022 7:26 AM Dictated:11/12/22 07 Transcribed: 11/12/22724 XR hip LT 2V w pelvis CLINICAL HISTORY: Fall. Left hip pain. COMPARISON STUDY: None. FINDINGS: No fracture or dislocation within the pelvis or hips. The sacrum is intact. Soft tissues are unremarkable. No radiopaque foreign bodies. IMPRESSION: No fractures within the pelvis or hips. ACT 112: Negative or not required by law. Electronically signed by: Bruno Joy M.D. 11/12/2022 7:25 AM Dictated:11/12/22 07 Transcribed: 11/12/[address]AST CT DOSE: 638.56 mGycm HISTORY: Seizures. TECHNIQUE: Multiaxial CT images of the head were performed without the use of intravenous contrast. Automated exposure control was utilized for this study. A dose lowering technique was utilized adhering to the principles of ALARA. Comparison: None. Findings: The paranasal sinuses and mastoid air cells are clear. The calvarium and skull base are intact. The ventricles and sulci are within normal limits. There is no mass, hematoma, midline shift, or acute infarct. Impression: No acute intracranial abnormality. ACT 112: Negative or not required by law. Electronically signed by: Bruno Joy M.D. 11/11/2022 4:44 PM Dictated:11/11/22 1639 Transcribed: 11/11/[address] DOSE: 487.91 mGycm HISTORY: Seizures. Neck pain. TECHNIQUE: Multiaxial CT images of the cervical spine were performed and reformatted in the sagittal and coronal plane without the use of contrast. A dose lowering technique was utilized adhering to the principles of ALARA. COMPARISON: None. FINDINGS: No fractures. No subluxation. Prevertebral soft tissues and the C1-C2 interval are intact. No pneumothorax. IMPRESSION: No fractures within the cervical spine. ACT 112: Negative or not required by law. Electronically signed by: Bruno Joy M.D. 11/11/2022 4:50 PM Dictated:11/11/22 1644 Transcribed: 11/11/22 1644 Medications Administered Current Medications Folic Acid (Folic Acid 1 Mg Tab) [address] [facility] Stop: 12/12/22 08:59 Last Admin: 11/12/22 08:56 Dose: 1 mg Thiamine HCl 100 mg/ Syringe 10 mls @ 2 mls/min IV QAM [facility] Stop: 12/12/22 08:59 Last Admin: 11/12/22 08:56 Dose: 2 mls/min Lorazepam (Lorazepam 1 Mg Tab) 1 mg PO UD PRN; Protocol PRN Reason: EtOH Withdrawal AWSS Score 6,7 Stop: 12/11/22 23:10 Lorazepam (Lorazepam 1 Mg Tab) 3 mg PO ONCE PRN; Protocol PRN Reason: EtOH Withdrawal AWSS Score 10 & above Lorazepam (Lorazepam 1 Mg Tab) 2 mg PO UD PRN; Protocol PRN Reason: EtOH Withdrawal AWSS Score 8,9 Stop: 12/11/22 23:10 Sertraline HCl (Sertraline Hcl 100 Mg Tablet) [address] [facility] Stop: 12/12/22 08:59 Last Admin: 11/12/22 08:56 Dose: 100 mg
[2022-11-12 11:24] LABS: Amphetamines+Metham, Urine Pos (Neg); Barbiturates, Urine Neg (Neg); Benzodiazepine, Urine Neg (Neg); Cocaine, Urine Neg (Neg); MDMA (Ecstacy), Urine Neg (Neg); Methadone, Urine Neg (Neg); Opiate, Urine Neg (Neg); Phencyclidine, Urine Neg (Neg)
[2022-11-12 12:30] LABS: Iron 64 mcg/dl (35-175); Total Iron Binding Cap Calc 331 mcg/dl (250-450); Transferrin (FE) Percent Satur 19 % (20-50); Unsaturated Iron Binding Cap 267 mcg/dl (155-355)
[2022-11-12 12:49] LABS: Ferritin 541.2 ng/ml (8-388)
--- NOTE | 2022-11-12 13:50 | Ultrasound Report ---
ABDOMINAL ULTRASOUND, RIGHT UPPER QUADRANT HISTORY: Acute right upper quadrant abdominal pain hx of alcohol abuse, withdrawal seizure. COMPARISON: Abdominal ultrasound 04/30/2016 FINDINGS: Pancreas: The pancreas is mostly secured by bowel gas. Liver: Measures 16.5 cm in length and demonstrates areas of increased echogenicity. Well-defined area s of decreased echogenicity measuring up to 1.8 cm suggestive of probable fatty sparing. Gallbladder: No gallbladder wall thickening. No gallstones. CBD: 0.3 cm. Right kidney: No hydronephrosis. IMPRESSION: 1. Hepatic steatosis. 2. Unremarkable sonographic appearance of the gallbladder. 3. No biliary ductal dilation. ACT 112: Negative or not required by law. Electronically signed by: Chet Medrano M.D. 11/12/2022 1:48 PM
--- NOTE | 2022-11-12 15:23 | Discharge Summary ---
Date of Service November 12, 2022 Admission HPI Per Admitting Provider Quan is a 22-year-old male with no significant past medical history who presented today to the ED after an unwitnessed seizure. Per the patient's mom, who is at bedside, sister was present after seizure started. She described, according to mom, generalized shaking, eyes rolling in the back of his head, and unresponsiveness. Patient also had some postictal confusion. He denies ever having a prior seizure. He does, however, report consuming approximately 5 shots of hard liquor a day at minimum since the age of 16. Patient's last drink was nearly 2 days ago. He denies drug use (marijuana, cocaine, meth, heroin), and further denies taking any new vitamins or supplements. In the ED, labs were notable for slight leukocytosis of 12.14. AST 114, ALT 133. Alk phos was normal at 86. Toxicology screen was negative for ethyl alcohol. Head CT, and cervical spine CT were both negative for acute fracture or dislocation/subluxation. He received a dose of IV thiamine 200 mg in the ED, and 1 dose of IV lorazepam. Hospitalist was then consulted for admission. On admission, he reports some mild epigastric pain. Otherwise, he denies headache, dizziness, vision changes, shortness of breath, chest pain, palpitations, diaphoresis, abdominal pain, nausea, or vomiting. He is concerned about having to stay here for an extended period of time due to his pending assignments at school. Admission Exam (Per Admitting) Constitutional No acute distress Eyes PERRLA. Normal conjunctiva, anicteric sclera. ENMT Oropharynx normal. Respiratory Normal respiratory effort, CTABL. Cardiovascular RRR without murmurs, gallops, or rubs. No edema. Distal capillary refill <2 seconds. Gastrointestinal (Abdomen) Soft abdomen with normal bowel sounds heard on auscultation. Nontender x4 quadrants Musculoskeletal Point tenderness to palpation of left shoulder at the joint space and along clavicle; point tenderness at proximal anterior left hip Neurologic Alert and oriented x3. CN II-XII intact bilaterally. No sensory deficits elicited on exam. Specialty Data Hospitalist Abnormal Labs 11/11/22 11/11/22 11/12/22 15:41 15:41 05:32 WBC 12.14 H 11.60 H RBC 3.85 L 3.72 L Hgb 12.7 L 12.1 L Hct 36.7 L 35.3 L RDW Std Deviation 49.6 H 48.6 H Plt Count 452 H Neut # (Auto) 9.46 H 8.49 H [place] # (Auto) 0.63 H 0.94 H Potassium Chloride 110 H Glucose 131 H Calcium Transferrin % Sat Ferritin AST 114 H ALT 133 H U Amphetamin/Meth Scrn 11/12/22 11/12/22 05:32 Unknown WBC RBC Hgb Hct RDW Std Deviation Plt Count Neut # (Auto) [place] # (Auto) Potassium 3.2 L Chloride 110 H Glucose 103 H Calcium 8.5 L Transferrin % Sat 19 L Ferritin 541.2 H AST 76 H ALT 108 H U Amphetamin/Meth Scrn Pos H ABDOMINAL ULTRASOUND, RIGHT UPPER QUADRANT HISTORY: Acute right upper quadrant abdominal pain hx of alcohol abuse, withdrawal seizure. COMPARISON: Abdominal ultrasound 04/30/2016 FINDINGS: Pancreas: The pancreas is mostly secured by bowel gas. Liver: Measures 16.5 cm in length and demonstrates areas of increased echogenicity. Well-defined areas of decreased echogenicity measuring up to 1.8 cm suggestive of probable fatty sparing. Gallbladder: No gallbladder wall thickening. No gallstones. CBD: 0.3 cm. Right kidney: No hydronephrosis. IMPRESSION: 1. Hepatic steatosis. 2. Unremarkable sonographic appearance of the gallbladder. 3. No biliary ductal dilation. ACT 112: Negative or not required by law. Electronically signed by: Chet Medrano M.D. 11/12/2022 1:48 PM Dictated: 11/12/22 1347 Transcribed: 11/12/22 1347 LEFT SHOULDER 3 VIEWS HISTORY: Left shoulder pain. fall 2/2 seizure COMPARISON: None. FINDINGS: There is no fracture or dislocation. Soft tissues are unremarkable. No radiopaque foreign bodies. The left clavicle is intact. IMPRESSION: No fractures. ACT 112: Negative or not required by law. Electronically signed by: Bruno Joy M.D. 11/12/2022 7:26 AM Dictated: 11/12/22 07 Transcribed: 11/12/22724 XR hip LT 2V w pelvis CLINICAL HISTORY: Fall. Left hip pain. COMPARISON STUDY: None. FINDINGS: No fracture or dislocation within the pelvis or hips. The sacrum is intact. Soft tissues are unremarkable. No radiopaque foreign bodies. IMPRESSION: No fractures within the pelvis or hips. ACT 112: Negative or not required by law. Electronically signed by: Bruno Joy M.D. 11/12/2022 7:25 AM Dictated: 11/12/22 0724 Transcribed: 11/12/[address] DOSE: 638.56 mGycm HISTORY: Seizures. TECHNIQUE: Multiaxial CT images of the head were performed without the use of intravenous contrast. Automated exposure control was utilized for this study. A dose lowering technique was utilized adhering to the principles of ALARA. Comparison: None. Findings: The paranasal sinuses and mastoid air cells are clear. The calvarium and skull base are intact. The ventricles and sulci are within normal limits. There is no mass, hematoma, midline shift, or acute infarct. Impression: No acute intracranial abnormality. ACT 112: Negative or not required by law. Electronically signed by: Bruno Joy M.D. 11/11/2022 4:44 PM Dictated: 11/11/22 1639 Transcribed: 11/11/[address] DOSE: 487.91 mGycm HISTORY: Seizures. Neck pain. TECHNIQUE: Multiaxial CT images of the cervical spine were performed and reformatted in the sagittal and coronal plane without the use of contrast. A dose lowering technique was utilized adhering to the principles of ALARA. COMPARISON: None. FINDINGS: No fractures. No subluxation. Prevertebral soft tissues and the C1-C2 interval are intact. No pneumothorax. IMPRESSION: No fractures within the cervical spine. ACT 112: Negative or not required by law. Electronically signed by: Bruno Joy M.D. 11/11/2022 4:50 PM Dictated: 11/11/22 1644 Transcribed: 11/11/22 1644 Hospital Course (1) Alcohol withdrawal: Plan 22 M with PMHx significant for ADHD brought to the hospital on 11/11/22 for seizure after 48 hours of sustaining from alcohol. Admitted for supervision of suspected alcohol withdrawal seizure. Alcohol-related seizure -No prior history of seizure. 6 year history of heavy alcohol consumption. Last drink was on Friday night11/09/22 (~48 hours before seizure onset). -No intracranial, cervical spinal injury, or acute process on imaging. -ED Course:Negative serum ethyl alcohol.. Thiamine 200 mg IV, lorazepam IV. -P.O. lorazepam ordered to be given per protocol KIKO protocol. -IV thiamine 100 mg daily; p.o. folate 1 mg daily -3 mg of Ativan total during hospitalization -No recurrence of seizures Alcohol Use Disorder -Had a period of heavy drinking that started 4 weeks ago. He was drinking one fifth of liquor every 1-2 days. During that time, he attended an AA meeting, and found some of the lessons helpful in terms of limiting alcohol intake. He decreased his frequency and total intake 2 weeks ago, -He would be willing to consider outpatient treatment, but is opposed to inpatient treatment. -He would be willing to consider starting acamprosate or naltrexone. -Case management provided information on outpatient treatment options. Quan is leading toward group therapy through AA. -D/C with a few doses of Librium PRN for alcohol withdrawal symptoms. -Will be following up with Dr. Segundo on 11/14/22. Hypokalemia, Mild -Potassium of 3.2 (down from 3.9 on 11/11/22), most likely due to IV fluid extracellular potassium shift. -Fluids discontinued. Potassium replacement completed. Elevated Transaminitis, Mild -AST (76), ALT (108). Does not follow typical 2:1 AST/ALT ratio seen in alcohol use. -Liver US 11/12/22 showed Hepatic steatosis. -Per father, patient had a history of fatty deposits in his liver that was discovered in 7th grade. -Follow up with PCP as above. Normocytic (MVC = 94.9) Anemia, Mild -Iron (64), TIBC (331), unsaturated IBC (267), B12 (263) WNL. Ferritin elevated at 541.2, consistent with alcohol use disorder/liver disease. -Treatment as above. Leukocytosis, Mild, Resolving -Likely due to the effect of circulating epinephrine and norepinephrine following the seizure. Anxiety, Chronic -Takes sertraline 100 mg daily at home Continue home regimen ADHD, Chronic Held home Adderall on admission. Supervising Physician Co-Signing Physician Notes Medical Student Supervision Note: I was personally present during medical student patient encounter and ind ependently interviewed and examined the patient and verified the beaver history and physical, reviewed labs and image studies, discussed the case with Marie Mcmahon and agree with the findings and care plan. 22 y/o M with alcohol use disorder here with alcohol withdrawal seizure. During hospital stay - no further seizures. Received MVI. Sent home on short librium taper. Discussed outpatient treatment with naltrexone, D and A counselling. Mild elevation of LFT - likely from alcohol use. to have outpatient f/u Normocytic anemic - b 12 and iron studies pending on discharge.
--- NOTE | 2022-11-12 19:00 | Electrocardiogram Report ---
Test Reason : Blood Pressure : / mmHG Vent. Rate : 113 BPM Atrial Rate : 113 BPM P-R Int : 170 ms QRS Dur : 080 ms QT Int : 322 ms P-R-T Axes : 030 007 008 degrees QTc Int : 441 ms Sinus tachycardia Otherwise normal ECG No previous ECGs available Confirmed by Braulio Magdaleno ([id number]) on 11/12/2022 6:59:52 PM Referred By: Confirmed By:Braulio Magdaleno
[2022-11-14 11:11] LABS: Amphetamine Urine, Confirm 3685 ng/mL (<250); Methamphetamine, Ur Confirm NEGATIVE ng/mL (<250)
== END 2022-11-12 16:12 | disposition home or self-care (01) | DRG 897 ==
LOC: ED 15:21 → SUATTDRO 20:30 → 2S 20:30